=== PATIENT | male | born 1935 | race Caucasian/White ===

== ENCOUNTER → 2017-08-12 13:42 | Outpatient (CLI) | payer OTHER, MEDICARE | END | disposition home or self-care (01) | LOC: D.RT 07-25 08:00 → D.LAB 07-25 09:00 → D.RAD 07-25 09:30 → D.RT 08-03 11:00 → D.LAB 08-03 12:00 → D.RAD 08-03 13:00 → D.RT 13:42 | DX: J44.9 Chronic obstructive pulmonary disease, unspecified (principal) ==

== ENCOUNTER → 2018-04-24 12:25 | Outpatient (CLI) | payer MEDICARE, OTHER | END | disposition home or self-care (01) | LOC: D.MRI 12:25 | DX: R05 Cough (principal); M25.511 Pain in right shoulder ==

== ENCOUNTER → 2018-06-16 11:00 | Outpatient (CLI) | payer MEDICARE, OTHER | END | disposition home or self-care (01) | LOC: D.MRI 11:00 | DX: M25.552 Pain in left hip (principal) ==

== ENCOUNTER → 2018-11-08 08:58 | Outpatient (CLI) | payer MEDICARE, OTHER | END | disposition home or self-care (01) | LOC: D.RT 08:58 | PROVIDERS: ATTEND Emergency Medicine | DX: J44.9 Chronic obstructive pulmonary disease, unspecified (principal) ==

== ENCOUNTER → 2019-06-15 08:43 | Outpatient (CLI) | payer MEDICARE, OTHER | END | disposition home or self-care (01) | LOC: D.NM 08:43 | PROVIDERS: ATTEND Emergency Medicine | DX: R10.9 Unspecified abdominal pain (principal) ==

== ENCOUNTER → 2019-07-11 08:25 | Outpatient (CLI) | payer MEDICARE, OTHER | END | disposition home or self-care (01) | LOC: D.RAD 06-28 09:00 | PROVIDERS: ATTEND Internal Medicine Gastroenterology | DX: R19.4 Change in bowel habit (principal); K59.00 Constipation, unspecified; R11.2 Nausea with vomiting, unspecified; R63.4 Abnormal weight loss ==

== ENCOUNTER 2020-12-06 19:39 | Emergency (ER) | payer MEDICARE, OTHER ==
[~2020-12-06] VITALS: Ht 167.6 cm; Wt 36.3 kg
[2020-12-06 19:41] VITALS: Ht 167.6 cm; Wt 36.3 kg
[2020-12-06 20:27] VITALS: BP 166/73
== END 2020-12-06 20:27 | disposition home or self-care (01) ==
LOC: D.ER 19:39
DX: E16.2 Hypoglycemia, unspecified (principal)